=== PATIENT | male | born 1955 | race Caucasian/White ===

== ENCOUNTER 2019-06-17 19:24 | Inpatient (IN) | payer MEDICARE, MEDICAID ==
--- NOTE | 2019-06-17 20:29 | ED ---
Medical Screening - HPI Summary HPI Summary: Patient brought 941 by [facility]'s Department for delusional behavior. [place]. Patient alert and coherent here in the ED, denies any symptoms of illness or pain. States former history of chronic EtOH, states he has not had a drink in 6 years. Admits only to cannabis for recreational drug use. Denies fever, cough, sore throat, CP, SOB, N/V/V, pain, change in urine, change in BM. Medical history is depression , bipolar. Currently not taking any medications. - History of Current Complaint Chief Complaint: EDMentalHealth Stated Complaint: 941 Time Seen by Provider: 06/17/19 20:27 Onset/Duration: Started Hours Ago Severity: moderate PMH/Surg Hx/FS Hx/Imm Hx Endocrine/Hematology History: Denies: Hx Anticoagulant Therapy Cardiovascular History: Denies: Hx Pacemaker/ICD History: Denies: Hx Dialysis Sensory History: Denies: Hx Eye Prosthesis Opthamlomology History: Denies: Hx Legally Blind EENT History: Denies: Hx Deafness Neurological History: Denies: Hx Dementia Infectious Disease History: No Infectious Disease History: Denies: Traveled Outside the in Last 30 Days - Family History Known Family History: Positive: Non-Contributory - Social History Alcohol Use: None Hx Substance Use: Yes Substance Use Type: Reports: Marijuana Smoking Status (MU): Former Smoker Review of Systems Positive: Chills Eyes: Negative ENT: Negative Cardiovascular: Negative Positive: Shortness Of Breath, Cough Gastrointestinal: Negative Genitourinary: Negative Musculoskeletal: Negative Skin: Negative Neurological: Negative Positive: Other All Other Systems Reviewed And Are Negative: Yes Physical Exam Triage Information Reviewed: Yes Vital Signs On Initial Exam: Initial Vitals Temp Pulse Resp BP Pulse Ox 98.5 F 67 16 160/92 99 06/17/19 19:59 06/17/19 19:59 06/17/19 19:59 06/17/19 19:59 06/17/19 19:59 Vital Signs Reviewed: Yes Appearance: Positive: Well-Appearing Skin: Positive: Warm Head/Face: Positive: Normal Head/Face Inspection Eyes: Positive: Normal ENT: Positive: Normal ENT inspection Neck: Positive: Supple Respiratory/Lung Sounds: Positive: Clear to Auscultation Cardiovascular: Positive: Normal Abdomen Description: Positive: Nontender Musculoskeletal: Positive: Normal Neurological: Positive: Normal Psychiatric: Positive: Normal AVPU Assessment: Alert - [place] Coma Scale Best Eye Response: 4 - Spontaneous Best Motor Response: 6 - Obeys Commands Best Verbal Response: 5 - Oriented Coma Scale Total: 15 Procedures - Sedation Patient Received Moderate/Deep Sedation with Procedure: No Diagnostics - Vital Signs Vital Signs Temp Pulse Resp BP Pulse Ox 06/17/19 19:59 98.5 F 67 16 160/92 99 - Laboratory Result Diagrams: 06/17/19 20:43 06/17/19 20:43 Lab Statement: Any lab studies that have been ordered have been reviewed, and results considered in the medical decision making process. Course/Dx - Course Course Of Treatment: Patient brought 941 by [facility]'s Department for delusional behavior. [place]. Patient alert and coherent here in the ED, denies any symptoms of illness or pain. States former history of chronic EtOH, states he has not had a drink in 6 years. Admits only to cannabis for recreational drug use. Denies fever, cough, sore throat, CP, SOB, N/V/V, pain, change in urine, change in BM. Medical history is depression, bipolar. Currently not taking any medications. Vital signs within normal limits. TSH 174. Labs otherwise unremarkable. Mental health evaluation team recommends admission to [facility] [place]. - Diagnoses Provider Diagnoses: Psychotic disorder Discharge ED - Sign-Out/Discharge Documenting (check all that apply): Sign-Out Patient Signing out patient TO: Sami Anthony - Discharge Plan Condition: Stable Disposition: [facility]IATRIC FAC[place] [place] - Billing Disposition and Condition Condition: STABLE Disposition: Psychiatric Facility [facility] [place]
[2019-06-17 20:53] LABS: ABS Eosinophils 0.1 10^3/ul (0-0.6); ABS Lymphocytes 1.5 10^3/ul (1.0-4.8); ABS Monocytes 0.7 10^3/ul (0-0.8); ABS Neutrophils 6.9 10^3/ul (1.5-7.7); Eosinophil % 0.8 %; Hematocrit 40 % (42-52); Hemoglobin 14.1 g/dL (14.0-18.0); Lymphocyte % 16.4 %; Mean Corpuscular HGB Conc 35 g/dL (31-36); Mean Corpuscular Hemoglobin 33 pg (27-31); Mean Corpuscular Volume 94 fL (80-94); Mean Platelet Volume 6.6 fL (7.4-10.4); Nucleated Red Blood Cells % 0.1; Platelet Count 296 10^3/uL (150-450); Red Blood Count 4.26 10^6 /uL (4.18-5.48); Red Cell Distribution Width 14 % (10-15); White Blood Count 9.2 10^3/uL (3.5-10.8)
[2019-06-17 21:08] LABS: ALT 16 U/L (7-52); AST 54 U/L (13-39); Albumin 4.9 g/dL (3.2-5.2); Alkaline Phosphatase 68 U/L (34-104); Anion Gap 8 mmol/L (2-11); BUN/Creatinine Ratio 13.1 (8-20); Blood Urea Nitrogen 13 mg/dL (6-24); CO2 Carbon Dioxide 28 mmol/L (22-32); Calcium 10.1 mg/dL (8.6-10.3); Chloride 91 mmol/L (101-111); EGFR African American 91.8 (>60); EGFR Non-African American 75.9 (>60); Globulin 4.7 g/dL (2-4); Glucose 95 mg/dL (70-100); Potassium 4.3 mmol/L (3.5-5.0); Sodium 127 mmol/L (135-145); Total Protein 9.6 g/dL (6.4-8.9)
[2019-06-17 21:13] LABS: Acetaminophen < 15 mcg/mL; Alcohol < 10 mg/dL (<10); Salicylate < 2.50 mg/dL (<30)
[2019-06-17 21:55] LABS: TSH (Thyroid Stimulating Horm) 174.02 mcIU/mL (0.34-5.60)
[2019-06-18 01:34] LABS: Free T4 0.36 ng/dL (0.61-1.12)
[2019-06-18 03:29] LABS: Urine Appearance Clear; Urine Bacteria Absent (Absent); Urine Bilirubin Negative (Negative); Urine Blood 1+ (Negative); Urine Color Yellow; Urine Glucose Negative (Negative); Urine Ketones 1+ (Negative); Urine Nitrite Negative (Negative); Urine Protein 2+(100 mg/dL) (Negative); Urine Red Blood Cell 3+(>10/hpf) (Absent); Urine Specific Gravity 1.014 (1.010-1.030); Urine Urobilinogen Negative (Negative); Urine White Blood Cell Absent (Absent)
[2019-06-18 03:37] LABS: Urine Benzodiazepine Screen None Detected (None Detect); Urine Opiates Screen None Detected (None Detect)
--- NOTE | 2019-06-18 06:22 | ED ---
Progress - Progress Note Progress Note: This pt was a sign out from PATRICK Hastings at shift change 0300 06/18/18 pending a MH hold until seen by PCP and dispo. - Consult/PCP Time Called: 01:00 Course/Dx - Course Course Of Treatment: This pt was a sign out from PATRICK Hastings at shift change 0300 06/18/18 pending a MH hold until seen by PCP and dispo. Pt had no complications during the shift. He will be signed out from Dr. Anthony to Dr. Arias at shift change 0700 06/18/19 pending a visit and disposition from his PCP. - Diagnoses Provider Diagnoses: Psychotic disorder Discharge ED - Sign-Out/Discharge Documenting (check all that apply): Sign-Out Patient, Receiving Sign-Out Signing out patient TO: Agusto Arias Receiving patient FROM: Agusto Hastings - Discharge Plan Condition: Stable [place] [place] Billing Disposition and Condition Condition: STABLE Disposition: Psychiatric Facility [facility] - Attestation Statements Document Initiated by Andersone: Yes Documenting Scribe: Errol Cervantes Provider For Whom Javon is Documenting (Include Credential): Sami Anthony MD Scribe Attestation: Errol Moreno, scribed for Sami Anthony MD on 06/19/19 at 1956. Scribe Documentation Reviewed: Yes Provider Attestation: The documentation as recorded by the Errol galarza accurately reflects the service I personally performed and the decisions made by me, Sami Anthony MD Status of Scribe Document: Viewed
--- NOTE | 2019-06-18 07:20 | ED ---
Progress - Progress Note Progress Note: Patient is received as a sign out from Dr. Anthony to Dr. Pascual at 0700 shift change pending psychiatrist evaluation and disposition. 1508 - Dr. San in ED to evaluate the patient. 1525 - Patient's case was discussed with Dr. San, patient will be admitted to [facility] with diagnosis of psychosis. - Consult/PCP Time Called: 01:00 Course/Dx - Course Course Of Treatment: Patient signout from Dr. Timmons pending mental health evaluation. Patient was evaluated by the psychiatrist recommended CT brain and admission to the behavioral science unit. - Diagnoses Provider Diagnoses: Psychotic disorder - Provider Notifications Discussed Care Of Patient With: Braxton San Time Discussed With Above Provider: 15:25 Instructed by Provider To: Other - 1508 - Dr. San in ED to evaluate the patient. 1525 - Patient's case was discussed with Dr. San, patient will be involuntarily admitted to [facility] with diagnosis of psychotic disorder. Brain CT was ordered, which Dr. San will follow up on. Discharge ED - Sign-Out/Discharge Documenting (check all that apply): Patient Departure - admit - Discharge Plan Condition: Stable Disposition: [place]ATR[place] [place]errals: No Primary Care Phys,NOPCP [Primary Care Provider] - - Billing Disposition and Condition Condition: STABLE Disposition: Psychiatric Facility [facility] [place] - Attestation Statements Document Initiated by Javon: Yes Documenting Scribe: MARIPOSA JORDAN Provider For Whom Javon is Documenting (Include Credential): MIKE PASCUAL MD Scribe Attestation: MARIPOSA Moreno, scribed for MIKE PASCUAL MD on 06/18/19 at 1652. Scribe Documentation Reviewed: Yes Provider Attestation: The documentation as recorded by the MARIPOSA galarza accurately reflects the service I personally performed and the decisions made by me, MIKE PASCUAL MD Status of Scribe Document: Viewed
--- NOTE | 2019-06-18 13:33 | PN ---
ED Psychiatric Progress Note Date of Service: 06/17/19 Subjective: This is a 63 year-old M who is pending admission to [facility] / transfer to another psychiatric facility / discharge to home / or being observed secondary to hallucinations. Pt. examined in room 6 at 1315. He is resting in bed comfortably. Objective: Vitals: Most recent vital signs documented below. General NAD Laboratory: Current laboratory results documented below. Assessment: Hallucinations. Plan: Pending MHE. Vital Signs Temp Pulse Resp BP Pulse Ox 97.6 F 58 16 150/80 98 06/18/19 06:03 06/18/19 06:03 06/18/19 06:03 06/18/19 06:03 06/18/19 06:03 Lab Results - Entire Visit 06/18/19 06/18/19 06/17/19 02:25 02:25 20:43 WBC RBC Hgb Hct MCV MCH MCHC RDW Plt Count MPV Neut % (Auto) Lymph % (Auto) Harrison % (Auto) Eos % (Auto) Baso % (Auto) Absolute Neuts (auto) Absolute Lymphs (auto) Absolute Monos (auto) Absolute Eos (auto) Absolute Basos (auto) Absolute Nucleated RBC Nucleated RBC % Sodium 127 L Potassium 4.3 Chloride 91 L Carbon Dioxide 28 Anion Gap 8 BUN 13 Creatinine 0.99 Est GFR ( Amer) 91.8 Est GFR (Non-Af Amer) 75.9 BUN/Creatinine Ratio 13.1 Glucose 95 Calcium 10.1 Total Bilirubin 0.70 AST 54 H ALT 16 Alkaline Phosphatase 68 Total Protein 9.6 H Albumin 4.9 Globulin 4.7 H Albumin/Globulin Ratio 1.0 TSH 174.02 H Free T4 0.36 L Free T3 1.80 L Urine Color Yellow Urine Appearance Clear Urine pH 6.[address] 1.014 Urine Protein 2+(100 mg/dl) A Urine Ketones 1+ A Urine Blood 1+ A Urine Nitrate Negative Urine Bilirubin Negative Urine Urobilinogen Negative Ur Leukocyte Esterase Negative Urine WBC (Auto) Absent Urine RBC (Auto) 3+(>10/hpf) A Urine Bacteria Absent Urine Glucose Negative Salicylates < 2.50 Urine Opiates Screen None detected Acetaminophen < 15 Ur Barbiturates Screen None detected Ur Phencyclidine Scrn None detected Ur Amphetamines Screen None detected U Benzodiazepines Scrn None detected Urine Cocaine Screen None detected U Cannabinoids Screen Presumptive positive A Serum Alcohol < 10 06/17/19 20:43 WBC 9.2 RBC 4.26 Hgb 14.1 Hct 40 L MCV 94 MCH 33 H MCHC 35 RDW 14 Plt Count 296 MPV 6.6 L Neut % (Auto) 74.6 Lymph % (Auto) 16.4 Harrison % (Auto) 7.9 Eos % (Auto) 0.8 Baso % (Auto) 0.3 Absolute Neuts (auto) 6.9 Absolute Lymphs (auto) 1.5 Absolute Monos (auto) 0.7 Absolute Eos (auto) 0.1 Absolute Basos (auto) 0.0 Absolute Nucleated RBC 0.0 Nucleated RBC % 0.1 Sodium Potassium Chloride Carbon Dioxide Anion Gap BUN Creatinine Est GFR ( Amer) Est GFR (Non-Af Amer) BUN/Creatinine Ratio Glucose Calcium Total Bilirubin AST ALT Alkaline Phosphatase Total Protein Albumin Globulin Albumin/Globulin Ratio TSH Free T4 Free T3 Urine Color Urine Appearance Urine pH Ur Specific Loop Urine Protein Urine Ketones Urine Blood Urine Nitrate Urine Bilirubin Urine Urobilinogen Ur Leukocyte Esterase Urine WBC (Auto) Urine RBC (Auto) Urine Bacteria Urine Glucose Salicylates Urine Opiates Screen Acetaminophen Ur Barbiturates Screen Ur Phencyclidine Scrn Ur Amphetamines Screen U Benzodiazepines Scrn Urine Cocaine Screen U Cannabinoids Screen Serum Alcohol
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
[2019-06-18] MEDS ORDERED: Acetaminophen TAB* 325 MG PO PRN (17:50)
[2019-06-18] MEDS ORDERED: Al Hydrox/Mg Hydrox/Simet LIQ* 30 ML UDC PO PRN (17:50)
[2019-06-18] MEDS: fluPHENAZine HCL TAB* 5 MG PO SCH (22:20)
[2019-06-19 08:57] LABS: HDL Cholesterol 43.2 mg/dL
[2019-06-19] MEDS: Vitamin THERAPEUTIC TAB PO SCH (11:14)
[2019-06-19] MEDS: fluPHENAZine HCL TAB* 5 MG PO SCH (20:27)
[2019-06-20] MEDS: Vitamin THERAPEUTIC TAB PO SCH (08:47)
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
[2019-06-20] MEDS: Levothyroxine TAB* 50 MCG TAB PO SCH (16:21)
[2019-06-20] MEDS ORDERED: risperiDONE TAB* 2 MG PO SCH (21:00)
[2019-06-21] MEDS: Levothyroxine TAB* 50 MCG TAB PO SCH (09:43)
[2019-06-21] MEDS: Vitamin THERAPEUTIC TAB PO SCH (10:00)
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
[2019-06-21] MEDS: risperiDONE TAB* 2 MG PO SCH (21:10)
[2019-06-22] MEDS: Levothyroxine TAB* 50 MCG TAB PO SCH (08:31)
[2019-06-22] MEDS: Vitamin THERAPEUTIC TAB PO SCH (08:31)
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
[2019-06-22] MEDS: risperiDONE TAB* 2 MG PO SCH (22:08)
[2019-06-23] MEDS: Vitamin THERAPEUTIC TAB PO SCH (11:38)
[2019-06-23] MEDS: Levothyroxine TAB* 50 MCG TAB PO SCH (11:38)
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
[2019-06-23] MEDS: risperiDONE TAB* 2 MG PO SCH (22:47)
[2019-06-24 08:59] VITALS: BP 122/81
[2019-06-24] MEDS: Vitamin THERAPEUTIC TAB PO SCH (09:18)
[2019-06-24] MEDS: Levothyroxine TAB* 50 MCG TAB PO SCH (09:18)
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
== END 2019-06-24 12:30 | disposition home or self-care (01) | DRG 885 ==
LOC: ED 19:24 → BSU 06-18 17:10
PROVIDERS: ADMIT Psychiatry & Neurology Psychiatry; ATTEND Psychiatry & Neurology Psychiatry
DX: F20.9 Schizophrenia, unspecified (principal)
CPT/HCPCS: 36415; 70450; 80053; 80061; 80307; 80320; 80329; 81003; 81015; 83036; 84439; 84443; 84481; 85025; 99222; 99231; 99232; 99238; 99285; A9270-GY; G0480